=== PATIENT | male | born 1980 | race Caucasian/White ===

== ENCOUNTER 2019-05-30 12:18 | Emergency (ER) | payer SELFPAY ==
[~2019-05-30] VITALS: Ht 172.7 cm; Wt 86.8 kg
[2019-05-30 12:23] VITALS: BP 133/89; PULSE 72; RESP 16; Ht 172.7 cm; Wt 86.8 kg
--- NOTE | 2019-05-30 12:25 | ERD ---
ER Documentation Chief Complaint Chief Complaint Right ear pain for 1 day HPI 39-year-old male, previously healthy, presents to the emergency department, complaining of 1 day with worsening of right ear pain, sharp, 05/22. The patient reports a history of swimming more than a week ago. He denies fever, no headache, no ear discharge, no neck pain. No medications taken at this time. ROS All systems reviewed and are negative except as per history of present illness. Medications Home Meds Active Scripts Azithromycin* (Zithromax*) 250 Mg Tablet, 250 MG PO .ZPACK DIRECTED, #6 TAB TAKE 500 MG (2 TABS) THE FIRST DAY THEN 250 MG (1 TAB) DAYS 2-5 Prov:ANGELES RODGERS MD 05/30/19 Acetaminophen* (Tylenol*) 325 Mg Tablet, 2 TAB PO Q6 PRN for PAIN AND OR ELEVATED TEMP, #20 TAB Prov:ANGELES RODGERS MD 05/30/19 Ibuprofen* (Motrin*) 600 Mg Tab, 600 MG PO Q8, #30 TAB Prov:ANGELES RODGERS MD 05/30/19 Ofloxacin Otic (Ofloxacin Otic) 5 Ml Drops, 5 DROP RIGHT EAR BID for 10 Days, #1 BOTTLE Prov:ANGELES RODGERS MD 05/30/19 PMhx/Soc Medical and Surgical Hx: pt denies Medical Hx, pt denies Surgical Hx Hx Alcohol Use: No Hx Substance Use: Yes (THC socially) Hx Tobacco Use: No Smoking Status: Current some day smoker (THC) FmHx Family History: No diabetes, No coronary disease Physical Exam Vitals Vital Signs Date Temp Pulse Resp B/P (MAP) Pulse Ox O2 O2 Flow FiO2 Time Delivery Rate 05/30/19 98.3 72 16 133/89 99 12:23 (104) Physical Exam Patient alert, oriented, vital signs stable. HEAD: Normocephalic, atraumatic. EYES: PERRLA, EOMI, Sclera and conjunctiva appear normal. NOSE: Clear and patent nostrils. EARS: Right ear: Bulging tympanic membrane, with significant erythema, opacity and middle ear effusion. The canal has significant edema and erythema as well. Contralateral ear with erythema and edema. MOUTH: normal lips and tongue, no oral lesions. THROAT: Normal oropharynx, no tonsillar exudates. NECK: Supple, No lymphadenopathy. Full ROM without pain or tenderness. HEART: RRR, no rubs, murmurs, clicks or gallops. LUNGS: Clear to auscultation. ABDOMEN: Soft, non-tender without masses or hepatosplenomegaly. EXTREMITIES: No edema bilaterally. BACK: Full ROM, no deformity, normal back exam NEURO: Cranial nerves grossly intact, no motor or sensory deficit SKIN: No rashes, no petechia. Procedures/MDM Vital signs stable, differential diagnosis include but not limited to: infection bacterial/viral/fungal. Tonsillitis, eustachian dysfunction, allergies, foreign body, cholesteatoma. Less likely mastoiditis, malignant otitis, meningitis. Physical examination and clinical presentation consistent most likely with right otitis media. During the ED course the patient remained stable, no new complaints. Clinical impression discussed with the patient who agrees with management. The patient is stable to be treated outpatient and will be discharged home with a Rx for antibiotics and ibuprofen. Some side effects of prescribed medications (headache, rash, nausea, vomiting, diarrhea, interactions with other medications) were reviewed. The patient was instructed to follow up with the primary care provider in the next 48h. If symptoms persist, worsen or new symptoms develop, then patient should return to the ED immediately. Disclaimer: Inadvertent spelling and grammatical errors are likely due to EHR/dictation software use and do not reflect on the overall quality of patient care. Also, please note that the electronic time recorded on this note does not necessarily reflect the actual time of the patient encounter. Departure Diagnosis: Primary Impression: Right otitis media with effusion Condition: Stable Additional Instructions: Muchas areli por [facility] para dukes servicio. Esperamos que en dukes visita a la jannette de emergencia dukes problema medico haya sido solucionado y que se sienta mucho mejor. Para estar seguros que dukes mejoria sigue en proceso, le pedimos el favor de hacer martha koko de seguimiento medico con dukes doctor primario en los proximos 2-4 duran. Lleve con usted estos documentos y las medicinas recetadas. Si eduin sintomas empeoran, NO SE ESPERE, por favor regrese a jannette de emergencia INMEDIATAMENTE. En tevin que usted no tenga un mdico de atencin primaria: Llame al mdico o clnica comunitaria de referencia que aparece abajo hannah las horas de consultorio para hacer martha koko para que le vean. CLINICAS: [facility] [phone] [facility] [phone] [address] [facility] [phone] [facility] [phone] [facility] [phone] [facility]. [phone] ANGELES ALEJANDRO MD May 30, 2019 12:25
[2019-05-30] MEDS ORDERED: IBUP-1542 PO (12:27)
[2019-05-30] MEDS ORDERED: AZIT250T PO (12:27)
[2019-05-30] MEDS ORDERED: OFLO5DRO7 RIGHT EAR (12:27)
[2019-05-30] MEDS ORDERED: ACET325T33 PO (12:27)
[2019-05-31] MEDS ORDERED: AMOX1TAB10 PO (22:06)
[2019-05-31] MEDS ORDERED: PRED20TA PO (22:06)
[2019-05-31] MEDS ORDERED: HYDR-4011 PO (22:06)
== END 2019-05-30 12:28 | disposition home or self-care (01) ==
LOC: FTE 12:18
DX: H65.91 Unspecified nonsuppurative otitis media, right ear (principal); F17.210 Nicotine dependence, cigarettes, uncomplicated
CPT/HCPCS: 99283

== ENCOUNTER 2019-05-31 19:20 | Emergency (ER) | payer SELFPAY ==
[~2019-05-31] VITALS: Ht 172.7 cm; Wt 87.9 kg
[~2019-05-31 19:20] MED LIST: ACET325T33 PO; AZIT250T PO; IBUP-1542 PO; OFLO5DRO7 RIGHT EAR
[2019-05-31 19:32] VITALS: Ht 172.7 cm; Wt 87.9 kg
[2019-05-31] MEDS ORDERED: KETOROLAC 15 MG INJ IV STA (20:16)
[2019-05-31] MEDS ORDERED: morphine 2 MG INJ IV STA (20:16)
--- NOTE | 2019-05-31 20:26 | ERD ---
ER Documentation Chief Complaint Chief Complaint R ear pain x 1 day HPI 39-year-old male, returns to the emergency department, 24 hours after being seen for a right otitis externa. The patient is complaining of worsening of pain, 10/10, throbbing, despite the use of ofloxacin otic, azithromycin, ibuprofen and Tylenol. The patient denies fever, no chills, no neck pain, no neck stiffness. ROS All systems reviewed and are negative except as per history of present illness. Medications Home Meds Active Scripts Hydrocodone/Acetaminophen (Kinmundy 5-325 Tablet) 1 Each Tablet, 1 TAB PO BID PRN for PAIN, #8 TAB Prov:ANGELES RODGERS MD 05/31/19 Prednisone* (Prednisone*) 20 Mg Tab, 40 MG PO DAILY for 4 Days, TAB Prov:ANGELES RODGERS MD 05/31/19 Amoxicillin/Potassium Clav (Amox-Clav 875-125 mg Tablet) 875-125 mg Tab, 1 TAB PO BID for 7 Days, #14 TAB Prov:ANGELES RODGERS MD 05/31/19 Azithromycin* (Zithromax*) 250 Mg Tablet, 250 MG PO .ZPACK DIRECTED, #6 TAB TAKE 500 MG (2 TABS) THE FIRST DAY THEN 250 MG (1 TAB) DAYS 2-5 Prov:ANGELES RODGERS MD 05/30/19 Acetaminophen* (Tylenol*) 325 Mg Tablet, 2 TAB PO Q6 PRN for PAIN AND OR ELEVATED TEMP, #20 TAB Prov:ANGELES RODGERS MD 05/30/19 Ibuprofen* (Motrin*) 600 Mg Tab, 600 MG PO Q8, #30 TAB Prov:ANGELES RODGERS MD 05/30/19 Ofloxacin Otic (Ofloxacin Otic) 5 Ml Drops, 5 DROP RIGHT EAR BID for 10 Days, #1 BOTTLE Prov:ANGELES RODGERS MD 05/30/19 Allergies Allergies: Coded Allergies: No Known Allergy (Unverified , 05/31/19) PMhx/Soc Medical and Surgical Hx: pt denies Medical Hx, pt denies Surgical Hx Hx Alcohol Use: No Hx Substance Use: Yes (THC socially) Hx Tobacco Use: No Smoking Status: Never smoker FmHx Family History: No diabetes Physical Exam Vitals Vital Signs Date Temp Pulse Resp B/P (MAP) Pulse Ox O2 O2 Flow FiO2 Time Delivery Rate 05/31/19 98.6 77 16 131/83 97 Room Air 22:17 (99) 05/31/19 99.0 80 18 139/77 99 19:32 (97) Physical Exam Patient alert, oriented, vital signs stable. HEAD: Normocephalic, atraumatic. EYES: PERRLA, EOMI, Sclera and conjunctiva appear normal. NOSE: Clear and patent nostrils. EARS: Right ear: [place]obe with significant erythema and edema, canals with edema and debris. MOUTH: normal lips and tongue, no oral lesions. THROAT: Normal oropharynx, no tonsillar exudates. NECK: Supple, No lymphadenopathy. Full ROM without pain or tenderness. HEART: RRR, no rubs, murmurs, clicks or gallops. LUNGS: Clear to auscultation. ABDOMEN: Soft, non-tender without masses or hepatosplenomegaly. EXTREMITIES: No edema bilaterally. BACK: Full ROM, no deformity, normal back exam NEURO: Cranial nerves grossly intact, no motor or sensory deficit SKIN: No rashes, no petechia. Results 24 hrs Current Medications Medications Dose Sig/Lizet Start Time Status Last (Trade) Ordered Route PRN Stop Time Admin Dose Reason Admin 8 mg ONCE ONCE 05/31/19 DC 05/31/19 Dexamethasone IV 20:30 20:37 (Decadron) 05/31/19 20:31 Cefazolin 50 ml @ ONCE ONCE 05/31/19 DC 05/31/19 Sodium/ 100 mls/hr IVPB 20:30 21:07 Dextrose 05/31/19 20:59 Ketorolac 15 mg ONCE STAT 05/31/19 DC 05/31/19 Tromethamine IV 20:16 20:37 (Toradol) 05/31/19 20:20 Morphine 2 mg ONCE STAT 05/31/19 DC 05/31/19 Sulfate IV 20:16 20:37 (morphine) 05/31/19 20:20 Sodium 500 ml @ Q1H ONCE 05/31/19 DC 05/31/19 Chloride 500 mls/hr IV 20:30 20:35 05/31/19 21:29 Procedures/MDM Vital signs stable, differential diagnosis include but not limited to: infection bacterial/viral/fungal. Tonsillitis, eustachian dysfunction, allergies, foreign body, cholesteatoma. Less likely mastoiditis, malignant otitis, meningitis. Physical examination and clinical presentation consistent most likely with right otitis externa During the ED course the patient remained stable, no new complaints. Clinical impression discussed with the patient who agrees with management. The patient received in the emergency department IV treatment with Ancef, dexamethasone, Toradol and morphine, presenting significant improvement of the symptoms. He is stable to be treated outpatient and will be discharged home. Some side effects of prescribed medications (headache, rash, nausea, vomiting, diarrhea, interactions with other medications) were reviewed. The patient was instructed to follow up with the primary care provider in the next 48h. If symptoms persist, worsen or new symptoms develop, then patient should return to the ED immediately. Disclaimer: Inadvertent spelling and grammatical errors are likely due to EHR/dictation software use and do not reflect on the overall quality of patient care. Also, please note that the electronic time recorded on this note does not necessarily reflect the actual time of the patient encounter. Departure Diagnosis: Primary Impression: Right otitis externa Condition: Stable Additional Instructions: Muchas areli por [facility] para dukes servicio. Esperamos que en dukes visita a la jannette de emergencia dukes problema medico haya sido solucionado y que se sienta mucho mejor. Para estar seguros que dukes mejoria sigue en proceso, le pedimos el favor de hacer martha koko de seguimiento medico con dukes doctor primario en los proximos 2-4 duran. Lleve con usted estos documentos y las medicinas recetadas. Si eduin sintomas empeoran, NO SE ESPERE, por favor regrese a jannette de emergencia INMEDIATAMENTE. En tevin que usted no tenga un mdico de atencin primaria: Llame al mdico o clnica comunitaria de referencia que aparece abajo hannah las horas de consultorio para hacer martha koko para que le vean. CLINICAS: [facility] [phone] [facility] [phone] [facility] [phone] [facility] [phone] [facility] [phone] [facility] [phone] ANGELES ALEJANDRO MD May 31, 2019 20:26
[2019-05-31] MEDS ORDERED: DEXAMETHASONE 10 MG/ML 1 ML INJ IV ONE (20:30)
[2019-05-31] MEDS ORDERED: CEFAZOLIN 2 GM/50 ML (PMX) 50 ML IVPB ONE (20:30)
[2019-05-31] MEDS ORDERED: SOD CHLORIDE 0.9% 500 ML IV ONE (20:30)
[2019-05-31] MEDS ORDERED: HYDR-4011 PO (22:06)
[2019-05-31] MEDS ORDERED: AMOX1TAB10 PO (22:06)
[2019-05-31] MEDS ORDERED: PRED20TA PO (22:06)
[2019-05-31 22:17] VITALS: BP 131/83; PULSE 77; RESP 16
== END 2019-05-31 22:17 | disposition home or self-care (01) ==
LOC: FTE 19:20
DX: H60.91 Unspecified otitis externa, right ear (principal)
CPT/HCPCS: 96374; 96375; 99284; J0690; J1100; J1885; J2270; J7040